=== PATIENT | male | born 1990 | race Two or more races ===

== ENCOUNTER 2018-12-25 09:11 | Inpatient (IN) | payer OTHER ==
[~2018-12-25] VITALS: Ht 172.7 cm; Wt 90.0 kg
[2018-12-25 10:20] LABS: BASOPHILS % (AUTO) 0.7 % (0.0-2.0); EOSINOPHILS % (AUTO) 0.8 % (1.0-6.0); LYMPHOCYTES # (AUTO) 1.5 K/uL (1.0-4.8); LYMPHOCYTES % (AUTO) 20.1 % (22.0-44.0); MEAN CORPUSCULAR HEMOGLOBIN 30.6 pg (26.0-34.0); MEAN CORPUSCULAR HGB CONC 32.5 G/dL (31.0-37.0); MEAN CORPUSCULAR VOLUME 94 fL (80-100); MONOCYTES # (AUTO) 0.6 K/uL (0.1-1.0); MONOCYTES % (AUTO) 8.3 % (2.0-9.0); NEUTROPHILS # (AUTO) 5.4 K/uL (1.8-7.7); NEUTROPHILS % (AUTO) 70.1 % (40.0-70.0); PLATELET COUNT (AUTO) 283 K/uL (150-450); RED BLOOD CELL COUNT(AUTO) 6.18 MIL/uL (4.50-5.90); RED CELL DISTRIBUTION WIDTH 14.3 % (11.5-14.5)
[2018-12-25 10:41] LABS: ANION GAP 7 mmol/L (8-16); CALCIUM, TOTAL 9.7 mg/dL (8.8-10.5); CARBON DIOXIDE 28 mmol/L (22-29); CHLORIDE 102 mmol/L (98-107); CREATININE 0.96 mg/dL (0.60-1.30); GLOMERULAR FILTR. RATE CALC > 60 mL/min (>60); GLUCOSE,RANDOM 103 mg/dL (70-110); POTASSIUM 4.7 mmol/L (3.5-5.1); SODIUM SERUM 137 mmol/L (136-145); UREA NITROGEN, BLOOD 11 mg/dL (7-18)
[2018-12-25 10:44] LABS: ALANINE AMINOTRANSFERASE 33 U/L (12-78); ALBUMIN 4.2 g/dL (3.4-5.0); ALKALINE PHOSPHATASE 131 U/L (46-116); ASPARTATE AMINOTRANSFERASE 32 U/L (15-37); BILIRUBIN,TOTAL 1.1 mg/dL (0.1-1.0); TOTAL PROTEIN, SERUM 8.1 g/dL (6.4-8.2)
[2018-12-25 11:39] VITALS: BP 128/78
[2018-12-25] MEDS ORDERED: MAG HYDROX/AL HYDROX/SIMETH ES 30 ML SUSPENSION UDCUP PO PRN (13:00)
[2018-12-25] MEDS ORDERED: LORazepam 2 MG/ML VIAL IVP PRN (13:00)
[2018-12-25] MEDS ORDERED: NICOTINE 14 MG/24 HOUR PATCH TD PRN (13:00)
[2018-12-25] MEDS ORDERED: ACETAMINOPHEN 325 MG TABLET PO PRN (13:00)
[2018-12-25] MEDS ORDERED: IBUPROFEN 400 MG TABLET PO PRN (13:00)
[2018-12-25] MEDS ORDERED: GuaiFENesin/D-METHORPHAN [SUGAR-FREE] 200-20MG/10 ML SYRUP UDCUP PO PRN (13:00)
[2018-12-25] MEDS ORDERED: PETROLATUM,WHITE 28 GM JELLY TP PRN (13:00)
[2018-12-25] MEDS ORDERED: ALBUTEROL SULFATE HFA 90 MCG/PUFF 8 GM INHALER IH PRN (13:00)
[2018-12-25] MEDS ORDERED: CloNIDine HCL 0.1 MG TABLET PO PRN (13:00)
[2018-12-25] MEDS ORDERED: MAGNESIUM HYDROXIDE SUSPENSION 30 ML UDCUP PO PRN (13:00)
[2018-12-25] MEDS ORDERED: MAGNESIUM SULFATE 2 GM, MVI, ADULT NO.1 WITH VIT K 10 ML, THIAMINE HCL 100 MG, FOLIC AC... IV ONE ×5 (13:00)
[2018-12-25] MEDS ORDERED: LOPERAMIDE HCL 2 MG CAPSULE PO PRN (13:00)
[2018-12-25] MEDS ORDERED: ONDANSETRON HCL 4 MG TABLET PO PRN (13:00)
[2018-12-25 16:18] VITALS: BP 122/72
[2018-12-25 19:55] VITALS: BP 127/61
[2018-12-25 20:15] LABS: APPEARANCE,URINE TURBID (CLEAR); BILIRUBIN,URINE NEGATIVE (NEGATIVE); GLUCOSE, URINE (UA) NEGATIVE (NEGATIVE); KETONES,URINE 15 mg/dL (NEGATIVE); LEUKOCYTE ESTERASE ,URINE NEGATIVE (NEGATIVE); NITRATE,URINE NEGATIVE (NEGATIVE); OCCULT BLOOD,URINE NEGATIVE (NEGATIVE); PROTEIN,URINE NEGATIVE (NEGATIVE)
[2018-12-25 20:51] LABS: AMPHET/METH SCREEN,URINE NEGATIVE (NEGATIVE); BARBITURATE SCREEN, URINE NEGATIVE (NEGATIVE); BENZODIAZEPINES SCREEN,URINE NEGATIVE (NEGATIVE); CANNABINOID SCREEN,URINE POSITIVE (NEGATIVE); COCAINE SCREEN,URINE NEGATIVE (NEGATIVE); METHADONE SCREEN, URINE NEGATIVE (NEGATIVE); OPIATE SCREEN,URINE NEGATIVE (NEGATIVE); PHENCYCLIDINE SCREEN,URINE NEGATIVE (NEGATIVE)
[2018-12-25 23:25] VITALS: BP 128/65
[2018-12-26 04:55] VITALS: BP 127/71
[2018-12-26 06:41] LABS: BASOPHILS % (AUTO) 0.7 % (0.0-2.0); EOSINOPHILS % (AUTO) 2.3 % (1.0-6.0); HEMOGLOBIN 18.9 g/dL (13.5-17.5); LYMPHOCYTES % (AUTO) 27.1 % (22.0-44.0); MEAN CORPUSCULAR HEMOGLOBIN 31.2 pg (26.0-34.0); MEAN CORPUSCULAR HGB CONC 33.2 G/dL (31.0-37.0); MEAN CORPUSCULAR VOLUME 94 fL (80-100); MONOCYTES # (AUTO) 0.9 K/uL (0.1-1.0); MONOCYTES % (AUTO) 11.6 % (2.0-9.0); NEUTROPHILS # (AUTO) 4.3 K/uL (1.8-7.7); NEUTROPHILS % (AUTO) 58.3 % (40.0-70.0); PLATELET COUNT (AUTO) 265 K/uL (150-450); RED BLOOD CELL COUNT(AUTO) 6.06 MIL/uL (4.50-5.90); RED CELL DISTRIBUTION WIDTH 14.3 % (11.5-14.5)
[2018-12-26 06:45] LABS: HEMATOCRIT 56.9 % (41-53)
[2018-12-26 07:02] LABS: HEMOGLOBIN A1C 4.9 % (4.5-6.2)
[2018-12-26 07:14] LABS: ALANINE AMINOTRANSFERASE 31 U/L (12-78); ALBUMIN 3.8 g/dL (3.4-5.0); ALKALINE PHOSPHATASE 119 U/L (46-116); ANION GAP 6 mmol/L (8-16); ASPARTATE AMINOTRANSFERASE 27 U/L (15-37); BILIRUBIN,TOTAL 1.1 mg/dL (0.1-1.0); CALCIUM, TOTAL 9.3 mg/dL (8.8-10.5); CARBON DIOXIDE 27 mmol/L (22-29); CHLORIDE 103 mmol/L (98-107); CHOLESTEROL 200 mg/dL (131-200); CREATININE 1.12 mg/dL (0.60-1.30); GLOMERULAR FILTR. RATE CALC > 60 mL/min (>60); GLUCOSE,RANDOM 96 mg/dL (70-110); POTASSIUM 4.4 mmol/L (3.5-5.1); SODIUM SERUM 136 mmol/L (136-145); TRIGLYCERIDES 135 mg/dL (15-150); UREA NITROGEN, BLOOD 12 mg/dL (7-18)
[2018-12-26 07:34] LABS: CHOL/HDL RATIO 4.5 (4.2-7.3); HDL CHOLESTEROL 44 mg/dL (40-60); LDL CHOL (CALC.) 129 mg/dL (0-130); TOTAL PROTEIN, SERUM 7.6 g/dL (6.4-8.2)
[2018-12-26] MEDS ORDERED: LORazepam 2 MG/ML VIAL IVP PRN (08:30)
[2018-12-26] MEDS: ChlordiazePOXIDE HCL 25 MG CAPSULE PO SCH ×3 (11:38→23:33)
[2018-12-26] MEDS: MULTIVITAMINS, THERAPEUTIC TABLET PO SCH (11:38)
[2018-12-26] MEDS: FOLIC ACID 1 MG TABLET PO SCH (11:38)
[2018-12-26] MEDS: THIAMINE HCL 100 MG TABLET PO SCH (11:38)
[2018-12-26 11:41] VITALS: BP 121/63
[2018-12-26 16:00] VITALS: BP 125/75
[2018-12-26 19:30] VITALS: BP 129/72
[2018-12-26 23:53] VITALS: BP 116/71
[2018-12-27 05:06] VITALS: BP 113/63
[2018-12-27 07:36] VITALS: BP 120/82
[2018-12-27] MEDS: DOCUSATE SODIUM 100 MG CAPSULE PO PRN (07:49)
[2018-12-27] MEDS: THIAMINE HCL 100 MG TABLET PO SCH (07:49)
[2018-12-27] MEDS: ChlordiazePOXIDE HCL 25 MG CAPSULE PO SCH ×3 (07:49→23:08)
[2018-12-27] MEDS: FOLIC ACID 1 MG TABLET PO SCH (07:49)
[2018-12-27 11:21] VITALS: BP 119/70
[2018-12-27] MEDS: MULTIVITAMINS, THERAPEUTIC TABLET PO SCH (12:00)
[2018-12-27 15:15] VITALS: BP 119/76
[2018-12-27 19:44] VITALS: BP 130/64
[2018-12-28 00:27] VITALS: BP 140/90
[2018-12-28 04:38] VITALS: BP 135/91
[2018-12-28 07:31] VITALS: BP 121/73
[2018-12-28] MEDS: THIAMINE HCL 100 MG TABLET PO SCH (08:22)
[2018-12-28] MEDS: MULTIVITAMINS, THERAPEUTIC TABLET PO SCH (08:22)
[2018-12-28] MEDS: DOCUSATE SODIUM 100 MG CAPSULE PO PRN (08:22)
[2018-12-28] MEDS: FOLIC ACID 1 MG TABLET PO SCH (08:22)
[2018-12-28] MEDS ORDERED: ChlordiazePOXIDE HCL 25 MG CAPSULE PO SCH (09:00)
== END 2018-12-28 10:30 | DRG 897 ==
LOC: EMS 09:13 → 6S 11:15
PROVIDERS: ADMIT Internal Medicine; ATTEND Internal Medicine
DX: F10.10 Alcohol abuse, uncomplicated (principal); E86.0 Dehydration; D75.1 Secondary polycythemia; Y90.9 Presence of alcohol in blood, level not specified
CPT/HCPCS: 80307; 83036; 84443; 96365; G0480; J3411; J3475; J3490; J7030